=== PATIENT | male | born 1980 | race Caucasian/White ===

== ENCOUNTER → 2019-10-24 08:31 | Outpatient (CLI) | payer OTHER, SELFPAY ==
[2019-10-19 14:02] LABS: Creatinine, Serum 0.96 mg/dL (0.70-1.30); EST Glomerular Filtration Rate 93 mL/min (>60); Est Glom Filt Rate - Afr Amer 113 mL/min (>60)
--- NOTE | 2019-10-24 08:38 | RAD_ITS ---
CLINICAL HISTORY: Male, 38 years old. Chronic right shoulder pain. PROCEDURE: ARTHROGRAM - RIGHT SHOULDER CONSENT: The procedure as well as the benefits and possible complications including infection and bleeding were explained to the patient. FLUOROSCOPY TIME (if supplied): (Seventy-six seconds) minutes/seconds Injection Information: 10 cc of dilute MRI contrast Number of images obtained: Four TECHNIQUE: (All elements of maximal sterile barrier technique followed, including US elements as applicable) The patient was in the supine position. The overlying skin was prepped and draped in the usual sterile fashion. Following local anesthetic application and under direct fluoroscopic guidance, a 22-gauge spinal needle was placed into the shoulder joint. 2 cc of ISOVUE 300 was injected for confirmation. Following this, 10 cc of dilute MRI contrast was injected. The patient tolerated the procedure well. RAD/Arthrogram Shoulder w/ MRI IMPRESSION: Successful right shoulder arthrogram for MRI imaging. The patient tolerated the procedure well. Electronically Signed: Ameya Edwards, at 10:09 EDT , Service support ,
--- NOTE | 2019-10-24 09:41 | MRI_ITS ---
STUDY: MR RIGHT SHOULDER ARTHROGRAPHY REASON FOR EXAM: Anterior shoulder pain for one year, no specific injury. TECHNIQUE: Standardized fat and water weighted pulse sequences were obtained in all 3 orthogonal planes after intra-articular instillation of dilute gadolinium. COMPARISON: Arthrogram preceding the MRI. FINDINGS: Normal supraspinatus tendon. Normal infraspinatus tendon. Normal subscapularis tendon. Normal teres minor tendon. Normal supraspinatus muscle. Normal infraspinatus muscle. Normal subscapularis muscle. Normal teres minor muscle. Normal glenohumeral articulation. Normal humeral head and visualized proximal humerus. Normal biceps labral complex. Normal intracapsular long biceps tendon. There is medial subluxation of the proximal extracapsular long biceps tendon under the transverse humeral ligament, perched at the lesser tuberosity (T1 axial images 12, 13). Normal labrum. Normal capsulo- ligamentous complex. Normal rotator interval. Normal acromioclavicular articulation. There is a Type II morphology (curved), with a neutral orientation. There is a small volume of subacromial-subdeltoid bursal fluid (T2 sagittal images 6-12). Normal visualized coracohumeral and coracoacromial ligaments. There is iatrogenic edema in the proximal anterior deltoid muscle. Normal trapezius muscle. MRI/Upper Ext Jt Only W/Contrast IMPRESSION: Medial subluxation of the proximal extracapsular long biceps tendon, perched at the lesser tuberosity. Mild subacromial-subdeltoid bursitis. Electronically Signed: Trey Owens MD at 11:25 EDT Tel , Service support ,
== END ==
PROVIDERS: Referring Provider Physician Assistant Surgical; Visit Provider Physician Assistant Surgical
DX: M25.511 Pain in right shoulder (principal); G89.29 Other chronic pain
CPT/HCPCS: 23350; 36415; 73222; 77002; 82565; A9575; Q9967